=== PATIENT | male | born 1960 | race Caucasian/White ===

== ENCOUNTER 2016-07-22 10:41 | Emergency (ER) | payer OTHER ==
[~2016-07-22] VITALS: Ht 167.6 cm; Wt 75.0 kg
[~2016-07-22 10:41] MED LIST: CYCL-36 PO; IBUP800T23 PO; LORTA5 PO
[2016-07-22 10:42] VITALS: BP 179/101; PULSE 108; RESP 16; TEMP 98.1; O2SAT 98
--- NOTE | 2016-07-22 12:53 | PD ---
HPI . Here to get bump cut off Chief Complaint: Skin Problem Time Seen by Provider: 12:52 Travel History International Travel<30 days: No Contact w/Intl Traveler<30days: No Traveled to known affect area: No History of Present Illness HPI 56-year-old male here with complaints of a bump on his left hand x 1 mt. He says that he contacted his insurance company and they told to come to the emergency room to have it cut open. Patient has not had the area assessed by any other medical provider. He denies any pain, fever, chills or change in hand function. He is very upset that he had to come to the ED. He is in a nieto to get back to [place] and his ride is waiting on him. No hx of HTN. His bp is elevated, but [facility] and has not been [facility] on [facility]. History Past Medical Histgory Hx Cancer: No Hx Chemotherapy: No Hx Radiation Therapy: No Social History Alcohol Use: Yes (NIGHTLY) Tobacco Use: Yes Allergies-Medications (Allergen,Severity, Reaction): Coded Allergies: No Known Allergies (Verified , 02/27/16) Reported Meds & Prescriptions Reported Meds & Active Scripts Active Flexeril (Cyclobenzaprine HCl) 10 Mg Tab 10 Mg PO TID Ibuprofen 800 Mg Tab 800 Mg PO Q8 PRN Hydrocodone/Acetaminophen 5 mg/325 mg 1 Tab Tab 1 Tab PO Q6 PRN Review of Systems General / Constitutional: No: Fever Eyes: No: Visual changes HENT: No: Headaches Cardiovascular: No: Chest Pain or Discomfort Respiratory: No: Shortness of Breath Gastrointestinal: No: Abdominal Pain Genitourinary: No: Dysuria Musculoskeletal: No: Pain Skin: No Rash Neurologic: No: Weakness Psychiatric: No: Depression Endocrine: No: Polydipsia Hematologic/Lymphatic: No: Easy Bruising Physical Exam Narrative GENERAL: AAO x 3, no acute distress, Well-nourished, well-developed patient. SKIN: Warm and dry. No visible rashes or bruising. left hand with small 1.4 cm ganglion cyst. HEAD: Normocephalic and atraumatic. EYES: No scleral icterus. No injection or drainage. ENT: No nasal drainage noted. NECK: Supple, trachea midline. No JVD. CARDIOVASCULAR: Regular rate and rhythm without murmurs, gallops, or rubs. RESPIRATORY: Breath sounds equal bilaterally. No accessory muscle use. No rhonchi or rales. GASTROINTESTINAL: Abdomen soft, non-tender, nondistended. EXTREMITIES: No cyanosis or edema. Left hand function normal. BACK: Nontender without obvious deformity. No CVA tenderness. PSYCH: AAO x 3, normal affect. Data Data Last Documented VS Vital Signs Date Time Temp Pulse Resp B/P Pulse Ox O2 Delivery O2 Flow Rate FiO2 07/22/16 10:42 98.1 108 16 179/101 98 MDM Medical Screen Exam Complete: Yes Emergency Medical Condition: No Differential Diagnosis ganglion cyst, lipoma Narrative Course A medical screening exam was performed: At the time of evaluation the presenting medical condition was determined not to be of an emergent nature. The patient was given the option of receiving additional care, but declined. Patient was given options for additional community resources from which to obtain care. The Patient Has Been advised to seek medical attention for their presenting complaint. The patient has been advised to return to the ER at any time if an emergent condition develops. [facility]. Primary Impression: Encounter for medical screening examination Condition: Stable Marisa Carey Jul 22, 2016 12:53
== END 2016-07-22 13:04 | disposition left against medical advice (07) ==
LOC: NEPB 10:41
DX: R22.31 Localized swelling, mass and lump, right upper limb (principal); M67.442 Ganglion, left hand; R03.0 Elevated blood-pressure reading, without diagnosis of hypertension; Z72.0 Tobacco use
CPT/HCPCS: 99281